=== PATIENT | male | born 1965 | race Caucasian/White ===

== ENCOUNTER → 2023-04-19 07:25 | Outpatient (REF) | payer BC, SELFPAY | LOC: RCS 07:25 | PROVIDERS: ATTENDING PHYSICIAN Physician Assistant; FAMILY PHYSICIAN Nurse Practitioner Family | DX: N39.46 Mixed incontinence (principal) | CPT/HCPCS: 93005 ==

== ENCOUNTER → 2023-09-14 16:50 | Outpatient (REF) | payer BC, SELFPAY | LOC: RAD 16:50 | PROVIDERS: ATTENDING PHYSICIAN Nurse Practitioner Family | DX: M62.830 Muscle spasm of back (principal); M54.50 Low back pain, unspecified; M54.6 Pain in thoracic spine | CPT/HCPCS: 72072; 72110 ==